=== PATIENT | female | born 1990 | race Caucasian/White ===

== ENCOUNTER 2024-05-21 08:28 | Emergency (ER) | payer OTHER, SELFPAY ==
[2024-05-21 08:46] VITALS: BP 111/73; PULSE 67; RESP 20; TEMP 36.8; O2SAT 100
--- NOTE | 2024-05-21 09:19 | ED.GENADULT ---
HPI - General Adult General Chief complaint: Upper Respiratory Infection Stated complaint: strep and flu symptoms Time Seen by Provider: 05/21/24 09:00 Source: patient, RN notes reviewed and old records reviewed Mode of arrival: ambulatory Limitations: no limitations History of Present Illness HPI narrative: 34-year-old female who presents to [facility] with complaints of fever blisters last week with complaints of 5-7 days of feeling tired, headache, congestion, cough, body aches, dry throat and chills. Patient reports that she has had past history of strep throat and has had T&A done in past. She states that she has been taking Ibuprofen, DayQuil and NyQuil for her symptoms. MD complaint: headache, congestion,body aches, dry throat, chills, fatigue Onset (ago): day(s) (5-7 days) Severity scale (1-10): 4 Quality: aching Treatments prior to arrival: NSAID and other (DayQuil, NyQuil) Related Data Home Medications Medication Instructions Recorded Confirmed ergocalciferol (vitamin D2) 1,250 1,250 mcg PO WEEKLY 05/21/24 05/21/24 mcg (50,000 unit) capsule topiramate 25 mg tablet 25 mg PO BID 05/21/24 05/21/24 venlafaxine 37.5 mg tablet 37.5 mg PO DAILY 05/21/24 05/21/24 venlafaxine 75 mg tablet 75 mg PO DAILY 05/21/24 05/21/24 Allergies Allergy/AdvReac Type Severity Reaction Status Date / Time vancomycin Allergy Unknown Rash Verified 05/21/24 09:08 Review of Systems Review of Systems: CONSTITUTIONAL:Reports malaise, chills, sweats, no known fever. EYES: Denies visual changes, redness, or discharge. ENT: Reports rhinorrhea, congestion, sinus pain,no otalgia and positive for sore dry throat. CARDIOVASCULAR: Denies chest pain, palpitations, or edema. RESPIRATORY: Reports cough.? Denies dyspnea. GASTROINTESTINAL: Denies abdominal pain, nausea, vomiting, diarrhea SKIN: Denies rash or itching. MUSCULOSKELETAL: Reports myalgia. NEUROLOGIC: Reports headache. All systems reviewed & are unremarkable except as noted in HPI and below PMFSH Past Medical History Medical History (Updated 05/22/24 @ 07:59 by Evelyn Lemon NP) Anxiety and depression Strep throat Surgical History Surgical History (Updated 05/22/24 @ 07:59 by Evelyn Lemon NP) H/O skin graft right hand H/O tubal ligation History of surgery on arm right for infection History of tonsillectomy and adenoidectomy Social History Social History (Updated 05/22/24 @ 07:48 by Evelyn Lemon NP) Smoking status: Current every day smoker Tobacco type: e-cigarettes/vaping Alcohol intake: current Alcohol use details: social Substance use type: does not use Living arrangements: with family Gender identity (if verbalized by the patient): Female Comments At time of signature, agree with nursing past medical, surgical, social and family history. There is no relevant family history pertinent to the presenting complaint Exam Narrative: GENERAL: Well-appearing, well-nourished, and in no acute distress. HEAD: Normocephalic EYES: PERRLA, conjunctivae clear ENT: Nares clear, turbinates edematous and erythematous, clear discharge. Mucous membranes moist. TM pearly hathaway with dull light reflex bilaterally; no tragal tenderness. Oropharynx erythematous without lesions. Tonsils not present and throat without exudate, no drooling, no hoarseness, no trismus, uvula midline.post nasal drainage noted NECK: Supple. No lymphadenopathy CHEST: Clear to auscultation, breath sounds equal. No wheezing, rhonchi, rales, or stridor. No respiratory distress, speaks in full sentences.cough SAO2 100% on room air HEART: Regular rate and rhythm. No murmur heard. SKIN: Warm, dry, no rash. NEURO: Alert and oriented x3. PSYCH: Normal mood and affect Course Course Emergency Course: Patient is aware of diagnosis, understands and agrees to treatment plan.? Anticipatory guidance given.? Patient agrees to follow-up as directed an
[2024-05-21 09:32] LABS: EDSTREPNEGPOS1 Presumptive Negative
== END 2024-05-21 09:32 | disposition home or self-care (01) ==
PROVIDERS: Emergency Provider Registered Nurse
DX: R09.89 Other specified symptoms and signs involving the circulatory and respiratory systems (principal); R05.9 Cough, unspecified; J02.9 Acute pharyngitis, unspecified; F32.A Depression, unspecified; F17.290 Nicotine dependence, other tobacco product, uncomplicated; F41.9 Anxiety disorder, unspecified; Z20.822 Contact with and (suspected) exposure to COVID-19
CPT/HCPCS: 87081; 87426; 87880; 99203; G0463